=== PATIENT | female | born 1945 | race Caucasian/White ===

== ENCOUNTER → 2023-06-11 13:33 | Outpatient (REF) | payer MEDICARE, OTHER, SELFPAY | LOC: WDC 13:33 | PROVIDERS: ATTENDING PHYSICIAN Family Medicine | DX: Z12.31 Encounter for screening mammogram for malignant neoplasm of breast (principal) | CPT/HCPCS: 77063; 77067 ==

== ENCOUNTER → 2023-10-06 07:45 | Outpatient (REF) | payer MEDICARE, OTHER, SELFPAY | LOC: WDC 07:45 | PROVIDERS: ATTENDING PHYSICIAN Family Medicine | DX: R92.30 Dense breasts, unspecified (principal); R92.2 Inconclusive mammogram | CPT/HCPCS: 76641 ==

== ENCOUNTER → 2024-06-15 07:42 | Outpatient (REF) | payer MEDICARE, OTHER, SELFPAY | LOC: WDC 07:42 | PROVIDERS: ATTENDING PHYSICIAN Family Medicine | DX: M81.0 Age-related osteoporosis without current pathological fracture (principal); Z12.31 Encounter for screening mammogram for malignant neoplasm of breast | CPT/HCPCS: 77063; 77067; 77080 ==

== ENCOUNTER 2024-12-02 11:40 | Emergency (ER) | payer MEDICARE, OTHER, SELFPAY ==
[2024-12-02 11:43] VITALS: BP 140/68
[2024-12-02 12:05] LABS: Hematocrit 38.1 % (37.0-47.0); Hemoglobin 12.9 g/dL (12.0-16.0); Mean Corp Hgb Conc. 33.9 g/dL (33.0-37.0); Mean Corpuscular Volume 90.9 fL (81.0-99.0); Nucleated Red Blood Cells % 0 %; Platelet Count 232 10^3/uL (130-400); Red Cell Dist. Width 13.4 % (11.5-14.5)
[2024-12-02 12:15] LABS: INR 0.92; PT 12.6 Sec (11.4-14.6)
[2024-12-02 12:24] LABS: ALT (SGPT) 25 U/L (0-35); AST (SGOT) 31 U/L (14-36); Albumin 4.5 g/dl (3.5-5.0); Alkaline Phosphatase 68 U/L (38-126); Blood Urea Nitrogen 21 mg/dl (7-17); Calcium 9.8 mg/dl (8.4-10.2); Carbon Dioxide 26 mmol/L (22-30); Chloride 104 mmol/L (98-107); Glucose 125 mg/dl (70-99); Potassium 4.3 mmol/L (3.5-5.1); Sodium 137 mmol/L (135-145); Total Protein 7.8 g/dl (6.3-8.2); eGFR > 60.00
[2024-12-02 13:04] LABS: Troponin I < 0.012 ng/ml
[2024-12-02 14:02] VITALS: BP 140/62
--- NOTE | 2024-12-02 14:16 | ED.GENMED ---
History of Present Illness
General
Chief Complaint: Dizziness
Source: patient
Exam Limitations: none
Time Seen by Provider: 12/02/24 14:08
Nursing documentation reviewed up to this point in time: agreed with
History of Present Illness
History of Present Illness:
Patient to ED with report of dizziness, lightheadedness, nausea, gait dysfunction. Difficulty walking due to dizziness. Symptoms started this AM. Denies headache or vision changes. No fever/chills, recent illness. She received her flu vaccine
yesterday. No history of trauma. States her nausea has resolved. Still with mild dizziness. Dizziness worse with position changes. No prior history of same. Brought to eD by family for eval.
Past History
Past History
ED Past Medical History: Other (glaucoma)
Review of Systems
Review of Systems
Allergies reviewed?: Yes
All Other Systems: ROS reviewed and negative except as documented in HPI and ROS
Constitutional: Reports no symptoms
EENT: Reports no symptoms
Respiratory: Reports no symptoms
Cardiac: Reports no symptoms
ABD/GI: Reports no symptoms
: Reports no symptoms
Musculoskeletal: Reports no symptoms
Skin: Reports no symptoms
Neurological: Reports dizzy
Psychiatric: Reports no symptoms
Phy Exam
General Physical Exam
General Presentation: mild distress
General age: appears stated age
General Skin: warm and dry
General Habitus: normal
General Mental: alert
ENT Exam
ENT Exam: EOMI, TM's normal and neck supple
Eye Exam
Eye Exam: PERRL, EOMI, conjunctiva normal, globe normal and other (No nystagmus)
Cardiovascular Exam
Cardiovascular Exam: regular rate/rhythm and no edema
Pulmonary Exam
Pulmonary Exam: lungs clear and no respiratory distress
Neurological Exam
Neurological Exam: alert, oriented x3, CN II-XII intact, no motor deficits, no sensory deficits and speech normal
[place] Coma Scale
Eye Opening: Spontaneous
Verbal Response: Oriented
Motor Response: Obeys Commands
GCS Total Score: 15
Musculoskeletal Exam
Musculoskeletal Exam: full ROM and no edema
Skin Exam
Skin Exam: normal color, warm/dry and no rash
Psychiatric Exam
Psychiatric Exam: normal mood/affect
Course
Orders/Labs/Results
Orders:
Orders
12/02/24 11:46
EKG [Electrocardiogram (*1)] Urgent
Reason for Study: Vertigo / Dizzy
EKG- Treatment ONCE
12/02/24 11:49
CT Head W/o Iv Contrast Urgent
Comment:
Reason For Exam: dizziness
12/02/24 11:58
Complete Blood Count/With Diff Urgent
Comprehensive Metabolic Panel Urgent
Prothrombin Time Urgent
Troponin I Urgent
12/02/24 14:36
Meclizine [Antivert] 25 mg PO NOW STA
12/02/24 15:04
Urinalysis Reflex To Culture Urgent
Date Specimen was Collected: 12/02/24
Time Specimen was Collected: 14:31
Urine Microscopic Reflex Cult Urgent
Urine Culture Urgent
MARLEE Source: U
Specimen Description:
Date Specimen was Collected: 12/02/24
Time Specimen was Collected: 14:31
12/02/24 15:41
Meclizine [Antivert] 25 mg PO NOW STA
Abnormal Lab Results
12/02/24 12/02/24
11:58 15:04
RBC 4.19 L 10^6/uL
(4.20-5.40)
Absolute Neuts (auto) 7.4 H 10^3/uL
(1.4-6.5)
Neutrophils % 78.2 H %
(42.2-75.2)
Lymphocytes % 14.4 L %
(20.5-51.1)
BUN 21 H mg/dl
(7-17)
Glucose 125 H mg/dl
(70-99)
Leukocyte Esterase Rfl 2+ A
(Negative)
Urine Bacteria (Reflex) Few A
(Negative)
12/02/24 11:58
12/02/24 11:58
Vital Signs
Initial and Last Documented VS:
Initial Vital Signs
Temp Pulse Resp BP Pulse Ox
98.9 F 76 17 140/68 99
12/02/24 11:43 12/02/24 11:43 12/02/24 11:43 12/02/24 11:43 12/02/24 11:43
Last Documented Vital Signs
Temp Pulse Resp BP Pulse Ox
98.9 F 76 18 132/74 99
12/02/24 11:43 12/02/24 16:25 12/02/24 16:25 12/02/24 16:25 12/02/24 16:25
*Radiology
Radiology exam reviewed: radiology read reviewed
*Pulse Oximetry
SaO2: 99
Oxygen Mode of Delivery: Room air
Patient hypoxic: no
*Critical Care Note
Total Time (30-74mins, 75-104mins- exclusive of procedures): Not Applicable
Update Note
Update Note:
Patient to ED iwth report of dizziness, n/v. Symptoms started this AM. Symptoms improving on way to ED. SHe was given IVF and meclizine in ED. Labs, CT report reviewed. No cnocerning findings. SHe is able to safely ambulate. WIll discharge
home and she will follow up with PCP. Given instructions on s/s to return to ED and she is agreeable to plan.
ED Attending Note
-
Portions of this chart may have been created with voice recognition software.� Occasional wrong word or��sound alike� substitutions may have occurred due to the inherent limitations of voice recognition software.
Discharge Plan
Departure
Patient Disposition: Home (Routine Discharge)
Date of Disposition: 12/02/24
Time of Disposition: 15:41
Patient with high blood pressure during this ER visit?: No
Condition: Good
Covid-19: Not Applicable
Discharge Problem:
Vertigo
Instructions: Vertigo (a type of dizziness)
Prescriptions:
New
meclizine 25 mg tablet
25 mg PO TID PRN (Reason: dizziness) Qty: 14 0RF
Referrals:
Radha Baeza DO [Family Provider, Family Practice]
Interventions
Interventions:
*Risk Screen - Suicide Last Done: 12/02/24 11:46
*General Assessment Last Done: 12/02/24 11:46
*Neglect/Abuse Screening Last Done: 12/02/24 11:46
*ED COVID-19 Vaccine History Last Done: 12/02/24 11:46
*ED Influenza Vaccine History Last Done: 12/02/24 11:46
*Nursing Disposition Last Done: 12/02/24 16:26
ED- Neurological Assessment Last Done: 12/02/24 13:22
ED- Cardiac Assessment Last Done: 12/02/24 13:22
ED Swallowing Screen Last Done: 12/02/24 13:22
Discharge Date and Time
Discharge Date/Time: 12/02/24 16:46
Print Language: MALAY
[2024-12-02] MEDS: ANTIVERT 25 MG PO ×2 (14:40→16:21)
[2024-12-02 15:11] VITALS: BP 136/70
[2024-12-02 15:11] LABS: Urine Character Clear (Clear)
[2024-12-02 15:19] LABS: Urine Squamous Cell 0-2 /LPF (Few)
[2024-12-02 15:20] LABS: Urine Red Blood Cell 0-2 /HPF (0-2)
[2024-12-02 16:25] VITALS: BP 132/74
== END 2024-12-02 16:46 | disposition home or self-care (01) ==
LOC: EMR 11:40
PROVIDERS: Emergency Medicine; Nurse Practitioner; EMERGENCY PHYSICIAN Student in an Organized Health Care Education/Training Program; FAMILY PHYSICIAN Family Medicine
DX: R42 Dizziness and giddiness (principal); R11.0 Nausea
CPT/HCPCS: 99284; 70450; 80053; 81003; 81015; 84484; 85025; 85610; 87086; 93005

== ENCOUNTER → 2025-01-11 07:38 | Outpatient (REF) | payer MEDICARE, OTHER, SELFPAY | LOC: WDC 07:38 | PROVIDERS: ATTENDING PHYSICIAN Family Medicine | DX: R92.2 Inconclusive mammogram (principal) | CPT/HCPCS: 76641 ==